=== PATIENT | female | born 1945 | race Caucasian/White ===

== ENCOUNTER 2018-12-03 07:25 | Inpatient (IN) | payer OTHER ==
[~2018-12-03] VITALS: Ht 175.3 cm; Wt 62.6 kg
[~2018-12-03 07:25] MED LIST: ALBU8.5H8 IH; ATEN50TA PO; FLUT1DIS3 IH; FURO20TA4 PO; GLIM2TAB3 PO; LISI40TA4 PO; METF-444 PO; SERT50TA12 PO; SIMV80TA91 PO
[2018-12-03] MEDS ORDERED: ONDANSETRON HCL 4 MG/2 ML VIAL ONE (08:23)
[2018-12-03] MEDS ORDERED: MORPHINE SULFATE 2 MG/ML 1ML SYG ONE (08:23)
[2018-12-03] MEDS ORDERED: DEXTROSE 50%-WATER 50 ML DISP.SYRIN IV ONE ×2 (08:29→11:46)
[2018-12-03 09:15] LABS: BASOPHILS % (AUTO) 0.3 % (0.0-5.0); EOSINOPHILS % (AUTO) 0.3 % (0.0-8.0); LYMPHOCYTES % (AUTO) 15.2 % (21.0-51.0); MEAN CORPUSCULAR HGB CONC 33.1 g/dL (32.0-36.0); MEAN CORPUSCULAR VOLUME 90.7 fL (79-99); NEUTROPHILS % (AUTO) 79.2 % (40.0-77.0); PLATELET COUNT (AUTO) 224 K/uL (130-400); RED BLOOD CELL COUNT(AUTO) 5.07 MIL/uL (4.00-5.50); RED CELL DISTRIBUTION WIDTH 14.1 % (11.0-15.5); WHITE BLOOD COUNT (AUTO) 7.7 K/uL (4.8-10.8)
[2018-12-03] MEDS ORDERED: MORPHINE SULFATE 4 MG/1ML SYG ONE ×2 (09:21→09:50)
[2018-12-03 09:25] LABS: CREATININE 0.6 mg/dL (0.5-1.5); POTASSIUM 3.1 mmol/L (3.5-5.1)
[2018-12-03 09:30] LABS: ALBUMIN 3.4 g/dL (3.5-5.0); BILIRUBIN,TOTAL 0.3 mg/dL (0.2-1.0); TOTAL PROTEIN, SERUM 6.7 g/dL (6.0-8.3)
[2018-12-03] MEDS ORDERED: POTASSIUM CHLORIDE 20MEQ/100ML 100 ML IV ONE (09:44)
[2018-12-03] MEDS ORDERED: LIDOCAINE HCL-MPF 1% 2ML VIAL ONE (09:46)
[2018-12-03] MEDS ORDERED: HYDROMORPHONE 1 MG/1 ML AMP ONE ×2 (10:32→17:14)
[2018-12-03] MEDS ORDERED: ONDANSETRON HCL 4 MG/2 ML VIAL IVP PRN (11:15)
[2018-12-03] MEDS ORDERED: POTASSIUM CHLORIDE 10% ELIXIR 20 MEQ/15 ML UDCUP PO PRN (11:15)
[2018-12-03] MEDS ORDERED: POTASSIUM CHLORIDE 20MEQ/100ML 100 ML IV PRN (11:15)
[2018-12-03] MEDS ORDERED: POTASSIUM CHLORIDE 20 MEQ ERTAB PO PRN (11:15)
[2018-12-03] MEDS ORDERED: LIDOCAINE HCL-MPF 1% 2ML VIAL IJ PRN (11:15)
[2018-12-03] MEDS: DEXTROSE 5 % AND 0.9 % NACL 1,000 ML IV SCH (11:15)
[2018-12-03] MEDS ORDERED: DEXTROSE 5 % AND 0.9 % NACL 1,000 ML IV ONE (11:38)
[2018-12-03] MEDS ORDERED: MAGNESIUM 2GM PREMIX 50ML 50 ML IV ONE (12:01)
[2018-12-03 17:42] LABS: ABG BASE EXCESS 3.4 mmol/L (-2.0-3.0); ABG HCO3 35.3 mmol/L (21.0-28.0); ABG OXYGEN SATURATION 92.9 % (95.0-99.0); ABG PCO2 95 mmHg (32-45)
[2018-12-03] MEDS: IPRATROPIUM/ALBUTEROL SULFATE 3 ML SOLUTION IH SCH ×2 (18:40→23:26)
[2018-12-03 22:13] LABS: ABG BASE EXCESS 5.6 mmol/L (-2.0-3.0); ABG HCO3 34.1 mmol/L (21.0-28.0); ABG OXYGEN SATURATION 98.4 % (95.0-99.0); ABG PCO2 67 mmHg (32-45)
[2018-12-03 23:00] VITALS: BP 161/85
[2018-12-03] MEDS: HYDROMORPHONE 1 MG/1 ML AMP IVP PRN (23:44)
[2018-12-04] MEDS: DEXTROSE 5 % AND 0.9 % NACL 1,000 ML IV SCH ×2 (00:40→20:29)
[2018-12-04 04:00] VITALS: BP 159/83
[2018-12-04 05:00] LABS: HEMATOCRIT 42.8 % (36-48); MEAN CORPUSCULAR HEMOGLOBIN 30.2 pg (27.0-33.0); MEAN CORPUSCULAR HGB CONC 32.9 g/dL (32.0-36.0); MEAN CORPUSCULAR VOLUME 91.6 fL (79-99); NUCLEATED RED BLOOD CELLS 0.1 % (0.0-0.19); PLATELET COUNT (AUTO) 209 K/uL (130-400); RED BLOOD CELL COUNT(AUTO) 4.67 MIL/uL (4.00-5.50); RED CELL DISTRIBUTION WIDTH 14.1 % (11.0-15.5); WHITE BLOOD COUNT (AUTO) 6.9 K/uL (4.8-10.8)
[2018-12-04 05:11] LABS: INR 1.01 (0.85-1.15); PROTHROMBIN TIME 10.6 SEC (9.6-11.6)
[2018-12-04] MEDS: HYDROMORPHONE 1 MG/1 ML AMP IVP PRN ×3 (05:13→16:33)
[2018-12-04 05:18] LABS: CREATININE 0.7 mg/dL (0.5-1.5); MAGNESIUM 1.8 mg/dL (1.80-2.40); PHOSPHORUS 3.5 mg/dL (2.5-4.9); POTASSIUM 4.5 mmol/L (3.5-5.1)
[2018-12-04] MEDS: IPRATROPIUM/ALBUTEROL SULFATE 3 ML SOLUTION IH SCH ×4 (05:46→23:51)
[2018-12-04] MEDS: MAGNESIUM 2GM PREMIX IV PRN (06:04)
[2018-12-04 06:46] LABS: ABG BASE EXCESS 4.6 mmol/L (-2.0-3.0); ABG HCO3 32.7 mmol/L (21.0-28.0); ABG PCO2 64 mmHg (32-45)
[2018-12-04 08:00] VITALS: BP 160/84
[2018-12-04] MEDS: ENOXAPARIN SODIUM 40 MG/0.4 ML SYRINGE SQ SCH (10:25)
[2018-12-04 11:00] VITALS: BP 165/81
[2018-12-04 16:00] VITALS: BP 191/97
[2018-12-04] MEDS ORDERED: HYDRALAZINE HCL 20 MG/ML VIAL ONE (16:55)
[2018-12-04] MEDS ORDERED: HYDRALAZINE HCL 20 MG/ML VIAL IV PRN (17:00)
[2018-12-04] MEDS ORDERED: ALPRAZOLAM 0.5 MG TABLET PO PRN (18:00)
[2018-12-04 19:00] VITALS: BP 166/82
[2018-12-04] MEDS: HYDROMORPHONE HCL 2 MG/ML VIAL IVP PRN (22:56)
[2018-12-05] VITALS (24 sets, daily range): BP systolic 115–165; BP diastolic 63–83
[2018-12-05] MEDS: DEXTROSE 5 % AND 0.9 % NACL 1,000 ML IV SCH ×2 (06:09→22:49)
[2018-12-05] MEDS: IPRATROPIUM/ALBUTEROL SULFATE 3 ML SOLUTION IH SCH ×4 (06:40→23:56)
[2018-12-05] MEDS ORDERED: CLINDAMYCIN 900 MG/D5% WATER 0 ML IV ONE (07:17)
[2018-12-05] MEDS ORDERED: CLINDAMYCIN 600 MG/D5% WATER 50 ML IV ONE (07:29)
[2018-12-05] MEDS ORDERED: MIDAZOLAM HCL 1 MG/ML 2ML VIAL ONE (07:33)
[2018-12-05] MEDS ORDERED: FENTANYL CITRATE PF 50 MCG/1 ML 2ML VIAL ONE (07:34)
[2018-12-05] MEDS ORDERED: PROPOFOL 1000 MG/100 ML 100 ML IV ONE (07:37)
[2018-12-05] MEDS ORDERED: DURAMORPH PF1 MG/ML 10ML AMP IV ONE (07:37)
[2018-12-05] MEDS ORDERED: KETAMINE HCL 100 MG/ML 5ML VIAL IJ ONE (07:47)
[2018-12-05] MEDS ORDERED: PHENYLEPHRINE HCL 10 MG/ML 1ML VIAL IV ONE ×2 (09:12→09:16)
[2018-12-05] MEDS ORDERED: ONDANSETRON HCL 4 MG/2 ML VIAL ONE (09:13)
[2018-12-05] MEDS ORDERED: SERTRALINE HCL 50 MG TABLET PO PRN (14:15)
[2018-12-05] MEDS: ENOXAPARIN SODIUM 40 MG/0.4 ML SYRINGE SQ SCH (14:33)
[2018-12-05] MEDS: METFORMIN HCL 500 MG TABLET PO SCH (17:43)
[2018-12-05] MEDS: HYDROCODONE/ACETAMINOPHEN 7.5/325 MG TAB PO PRN (17:45)
[2018-12-05] MEDS: BUDESONIDE 0.5 MG/2 ML INH IH SCH (19:11)
[2018-12-05] MEDS ORDERED: SALMETEROL IH SCH (21:00)
[2018-12-05] MEDS ORDERED: FLUTICASONE IH SCH (21:00)
[2018-12-05] MEDS: SIMVASTATIN 20 MG TABLET PO SCH (21:36)
[2018-12-05] MEDS: CLINDAMYCIN 600 MG/D5% WATER 50 ML IV SCH (23:13)
[2018-12-06 04:00] VITALS: BP 147/83
[2018-12-06] MEDS: HYDROCODONE/ACETAMINOPHEN 7.5/325 MG TAB PO PRN ×3 (05:13→14:18)
[2018-12-06 05:52] LABS: HEMATOCRIT 37.3 % (36-48); MEAN CORPUSCULAR HEMOGLOBIN 30.2 pg (27.0-33.0); MEAN CORPUSCULAR HGB CONC 33.2 g/dL (32.0-36.0); MEAN CORPUSCULAR VOLUME 90.9 fL (79-99); PLATELET COUNT (AUTO) 214 K/uL (130-400); RED CELL DISTRIBUTION WIDTH 14.2 % (11.0-15.5); WHITE BLOOD COUNT (AUTO) 7.5 K/uL (4.8-10.8)
[2018-12-06] MEDS: IPRATROPIUM/ALBUTEROL SULFATE 3 ML SOLUTION IH SCH ×4 (05:54→23:29)
[2018-12-06 06:01] LABS: CREATININE 0.6 mg/dL (0.5-1.5); POTASSIUM 3.5 mmol/L (3.5-5.1)
[2018-12-06] MEDS: BUDESONIDE 0.5 MG/2 ML INH IH SCH ×2 (06:14→18:47)
[2018-12-06] MEDS: CLINDAMYCIN 600 MG/D5% WATER 50 ML IV SCH (07:47)
[2018-12-06 08:00] VITALS: BP 159/76
[2018-12-06] MEDS: ENOXAPARIN SODIUM 40 MG/0.4 ML SYRINGE SQ SCH (08:22)
[2018-12-06] MEDS: LISINOPRIL 40 MG TABLET PO SCH (08:22)
[2018-12-06] MEDS: ATENOLOL 50 MG TABLET PO SCH (08:22)
[2018-12-06] MEDS: METFORMIN HCL 500 MG TABLET PO SCH ×2 (08:23→16:40)
[2018-12-06] MEDS: FUROSEMIDE 20 MG TABLET PO SCH (08:23)
[2018-12-06] MEDS ORDERED: GLIMEPIRIDE 2 MG TABLET PO SCH (09:00)
[2018-12-06] MEDS: TRAMADOL HCL 50 MG TABLET PO SCH ×2 (10:00→14:00)
[2018-12-06] MEDS: INSULIN HUMULIN R 100 UNIT/ML 3ML SQ SCH ×3 (11:30→21:00)
[2018-12-06 12:00] VITALS: BP 138/66
[2018-12-06 16:00] VITALS: BP 131/76
[2018-12-06] MEDS ORDERED: TRAMADOL HCL 50 MG TABLET PO PRN (16:15)
[2018-12-06 19:25] VITALS: BP 159/72
[2018-12-06] MEDS: SIMVASTATIN 20 MG TABLET PO SCH (20:19)
[2018-12-06] MEDS: HYDROMORPHONE HCL 2 MG/ML VIAL IVP PRN (20:53)
[2018-12-06 23:29] VITALS: BP 160/76
[2018-12-07] MEDS: HYDROCODONE/ACETAMINOPHEN 7.5/325 MG TAB PO PRN ×3 (01:06→17:24)
[2018-12-07 03:50] VITALS: BP 146/77
[2018-12-07 05:47] LABS: HEMATOCRIT 36.1 % (36-48); MEAN CORPUSCULAR HEMOGLOBIN 29.7 pg (27.0-33.0); MEAN CORPUSCULAR VOLUME 90.1 fL (79-99); PLATELET COUNT (AUTO) 213 K/uL (130-400); RED CELL DISTRIBUTION WIDTH 13.9 % (11.0-15.5); WHITE BLOOD COUNT (AUTO) 7.4 K/uL (4.8-10.8)
[2018-12-07 05:54] LABS: HEMOGLOBIN A1C 5.8 % (4.0-6.0)
[2018-12-07 06:06] LABS: ALBUMIN 2.1 g/dL (3.5-5.0); BILIRUBIN,TOTAL 0.4 mg/dL (0.2-1.0); CREATININE 0.5 mg/dL (0.5-1.5); MAGNESIUM 1.5 mg/dL (1.80-2.40); POTASSIUM 3.8 mmol/L (3.5-5.1); TOTAL PROTEIN, SERUM 5.1 g/dL (6.0-8.3)
[2018-12-07] MEDS: INSULIN HUMULIN R 100 UNIT/ML 3ML SQ SCH ×4 (06:26→21:00)
[2018-12-07] MEDS: IPRATROPIUM/ALBUTEROL SULFATE 3 ML SOLUTION IH SCH ×3 (06:28→19:28)
[2018-12-07] MEDS: BUDESONIDE 0.5 MG/2 ML INH IH SCH ×2 (06:28→19:28)
[2018-12-07 07:45] VITALS: BP 159/66
[2018-12-07] MEDS: METFORMIN HCL 500 MG TABLET PO SCH ×2 (09:14→17:24)
[2018-12-07] MEDS: ATENOLOL 50 MG TABLET PO SCH (09:14)
[2018-12-07] MEDS: FUROSEMIDE 20 MG TABLET PO SCH (09:14)
[2018-12-07] MEDS: ENOXAPARIN SODIUM 40 MG/0.4 ML SYRINGE SQ SCH (09:15)
[2018-12-07] MEDS: LISINOPRIL 40 MG TABLET PO SCH (09:15)
[2018-12-07] MEDS: HYDROMORPHONE HCL 2 MG/ML VIAL IVP PRN (09:59)
[2018-12-07 12:44] VITALS: BP 143/71
[2018-12-07] MEDS: LACTULOSE 20 GM/30 ML UDCUP PO PRN (13:02)
[2018-12-07 16:30] VITALS: BP 161/80
[2018-12-07 19:50] VITALS: BP 138/64
[2018-12-07] MEDS: SIMVASTATIN 20 MG TABLET PO SCH (22:08)
[2018-12-07 23:45] VITALS: BP 162/73
[2018-12-08] MEDS: IPRATROPIUM/ALBUTEROL SULFATE 3 ML SOLUTION IH SCH ×3 (00:11→10:57)
[2018-12-08] MEDS: MAGNESIUM 2GM PREMIX IV PRN (00:29)
[2018-12-08] MEDS: HYDROMORPHONE HCL 2 MG/ML VIAL IVP PRN (03:23)
[2018-12-08 03:45] VITALS: BP 179/77
[2018-12-08] MEDS: BUDESONIDE 0.5 MG/2 ML INH IH SCH (07:16)
[2018-12-08] MEDS: INSULIN HUMULIN R 100 UNIT/ML 3ML SQ SCH ×2 (07:30→11:30)
[2018-12-08 07:47] VITALS: BP 150/73
[2018-12-08] MEDS: FUROSEMIDE 20 MG TABLET PO SCH (09:00)
[2018-12-08] MEDS: METFORMIN HCL 500 MG TABLET PO SCH (09:00)
[2018-12-08] MEDS: ATENOLOL 50 MG TABLET PO SCH (09:00)
[2018-12-08] MEDS: LISINOPRIL 40 MG TABLET PO SCH (09:01)
[2018-12-08] MEDS: ENOXAPARIN SODIUM 40 MG/0.4 ML SYRINGE SQ SCH (09:06)
[2018-12-08] MEDS: HYDROCODONE/ACETAMINOPHEN 7.5/325 MG TAB PO PRN ×2 (11:22→13:27)
[2018-12-08] MEDS: LACTULOSE 20 GM/30 ML UDCUP PO PRN (11:23)
[2018-12-08 11:47] VITALS: BP 178/79
== END 2018-12-08 14:17 | DRG 480 ==
LOC: EDH 07:25 → EDHIP 10:41 → 4AH 22:29
PROVIDERS: ADMIT Internal Medicine Critical Care Medicine; ATTEND Internal Medicine Critical Care Medicine
PROC: 5A09357 Assistance with Respiratory Ventilation, Less than 24 Consecutive Hours, Continuous Positive Airway Pressure (ICD-10-PCS; 2018-12-03)
PROC: 5A09357 Assistance with Respiratory Ventilation, Less than 24 Consecutive Hours, Continuous Positive Airway Pressure (ICD-10-PCS; 2018-12-04)
PROC: 0QS706Z Reposition Left Upper Femur with Intramedullary Internal Fixation Device, Open Approach (ICD-10-PCS; principal; 2018-12-05 07:30)
PROC: 5A09357 Assistance with Respiratory Ventilation, Less than 24 Consecutive Hours, Continuous Positive Airway Pressure (ICD-10-PCS; 2018-12-06)
DX: S72.142A Displaced intertrochanteric fracture of left femur, initial encounter for closed fracture (principal); J96.22 Acute and chronic respiratory failure with hypercapnia; E11.65 Type 2 diabetes mellitus with hyperglycemia; J44.9 Chronic obstructive pulmonary disease, unspecified; I10 Essential (primary) hypertension; F17.200 Nicotine dependence, unspecified, uncomplicated; E66.9 Obesity, unspecified; E78.5 Hyperlipidemia, unspecified; W01.0XXA Fall on same level from slipping, tripping and stumbling without subsequent striking against object, initial encounter; Y93.89 Activity, other specified; Y92.098 Other place in other non-institutional residence as the place of occurrence of the external cause; Y99.8 Other external cause status; Z90.710 Acquired absence of both cervix and uterus; Z99.81 Dependence on supplemental oxygen; Z88.0 Allergy status to penicillin
CPT/HCPCS: 36415; 36600; 71045; 71250; 73502; 76000; 80048; 80053; 82550; 82803; 82948; 83036; 83735; 84100; 85025; 85027; 85610; 93005; 94640; 94660; 94664; 94760; 97039; A4606; G0378; J0360; J1170; J1650; J2250; J2270; J2274; J2370; J2405; J2704; J3010; J3475; J3480; J3490; J7030; J7042; J7070

== ENCOUNTER 2019-03-17 15:32 | Inpatient (IN) | payer OTHER | END 2019-04-09 14:15 | disposition home or self-care (01) | LOC: EDH 15:32 → 3BH 03-18 12:50 → 3AH 03-20 16:03 → EDHIP 17:38 | DX: J44.1 Chronic obstructive pulmonary disease with (acute) exacerbation (principal); R07.89 Other chest pain; I10 Essential (primary) hypertension; E11.9 Type 2 diabetes mellitus without complications; E78.5 Hyperlipidemia, unspecified; Z72.0 Tobacco use; Z99.81 Dependence on supplemental oxygen ==